=== PATIENT | male | born 1955 | race Caucasian/White ===

== ENCOUNTER → 2019-08-02 09:13 | Outpatient (CLI) | payer OTHER, BC, SELFPAY ==
--- NOTE | ~2019-08-02 | XR_ITS ---
EXAMINATION: XR chest 2V 08/02/2019 09:35 INDICATION: Cough PROCEDURE: 2 view chest COMPARISON: 02/16/2019 FINDINGS: The lungs are clear. The cardiomediastinal silhouette is within normal limits. There are no pleural effusions. There is no pneumothorax suspected. IMPRESSION: 1: NO ACUTE CARDIOPULMONARY DISEASE. Reviewed, dictated and finalized at location B. 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
== END ==
PROVIDERS: PCP Family Medicine; Visit Provider Family Medicine
DX: R05 Cough (principal)
CPT/HCPCS: 71046

== ENCOUNTER → 2019-09-09 10:19 | Outpatient (CLI) | payer OTHER, BC, SELFPAY ==
--- NOTE | ~2019-09-09 | XR_ITS ---
EXAMINATION: XR chest 2V DATE: 09/09/2019 10:43 INDICATION: Wheezing. TECHNIQUE: Frontal and lateral views of the chest were obtained. COMPARISON: Chest 2 views 08/02/2019 FINDINGS: There are peripheral airspace opacities in the upper lobes bilaterally. No pleural effusion or pneumothorax. The heart size is normal. IMPRESSION: 1. New peripheral airspace opacities in the upper lobes bilaterally, consistent with pneumonia. Reviewed, dictated and finalized at location A.
== END ==
PROVIDERS: PCP Family Medicine; Visit Provider Family Medicine
DX: R06.2 Wheezing (principal); R91.8 Other nonspecific abnormal finding of lung field
CPT/HCPCS: 71046

== ENCOUNTER 2019-09-23 10:24 | Outpatient (CLI) | payer OTHER, BC, SELFPAY ==
--- NOTE | ~2019-09-23 | XR_ITS ---
EXAMINATION: XR chest 2V DATE: 09/23/2019 10:39 INDICATION: Pneumonia, unspecified TECHNIQUE: Frontal and lateral views of the chest are obtained COMPARISON: 09/09/2019 FINDINGS: The previously described peripheral airspace opacities of the upper lobes have nearly compl etely resolved. The lungs are free of acute opacities. There is no pleural effusion or pneumothorax. The cardiomediastinal silhouette is normal. The visualized bones and soft tissues are unremarkable. IMPRESSION: 1. Near complete resolution of bilateral upper lobe airspace opacities, consistent with resolving pne umonia. Reviewed, dictated and finalized at location A. IMPRESSION: 1. Near complete resolution of bilateral upper lobe airspace opacities, consist ent with resolving pneumonia.
== END 2019-09-23 10:25 | disposition home or self-care (01) ==
PROVIDERS: PCP Family Medicine; Visit Provider Family Medicine
DX: J18.9 Pneumonia, unspecified organism (principal)
CPT/HCPCS: 71046

== ENCOUNTER 2019-10-14 11:01 | Outpatient (CLI) | payer OTHER, BC, SELFPAY ==
--- NOTE | ~2019-10-14 | XR_ITS ---
XR chest 2V DATE: 10/14/2019 11:15 INDICATION: Cough TECHNIQUE: PA and lateral views COMPARISON: 09/23/2019 PA and lateral chest FINDINGS: Normal heart size. No hilar or mediastinal enlargement. No pulmonary infiltrate or consolid ation, pleural effusion or pulmonary vascular congestion or pneumothorax. IMPRESSION: No active cardiopulmonary disease Reviewed, dictated and finalized at location A.
== END 2019-10-14 11:02 | disposition home or self-care (01) ==
LOC: ANHIMG 11:03
PROVIDERS: PCP Family Medicine; Visit Provider Family Medicine
DX: R05 Cough (principal)
CPT/HCPCS: 71046

== ENCOUNTER 2024-05-31 07:47 | Outpatient (CLI) | payer MEDICARE, OTHER, SELFPAY ==
--- NOTE | ~2024-05-31 | XR_ITS ---
Clinical Indication: Cough PA and lateral views of the chest: Comparison: 10/14/2019 Findings: The lungs are clear, without evidence of focal consolidation or pleural effusion. Cardiome diastinal silhouette is within normal limits. Bones and soft tissues are unremarkable. Impression: Normal chest. Reviewed, dictated and finalized at [facility]. 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
== END 2024-05-31 07:48 | disposition home or self-care (01) ==
LOC: MICIMG 07:48
PROVIDERS: PCP Family Medicine; Visit Provider Family Medicine
DX: R05.3 Chronic cough (principal)
CPT/HCPCS: 71046

== ENCOUNTER 2024-07-05 10:03 | Outpatient (CLI) | payer MEDICARE, OTHER, SELFPAY ==
--- NOTE | ~2024-07-05 | XR_ITS ---
EXAMINATION: XR chest 2V 07/05/2024 10:27 INDICATION: Chronic cough PROCEDURE: AP chest COMPARISON: Comparison to multiple prior studies sequentially, with oldest reviewed study dated 09/08. FINDINGS: The lungs are clear. The cardiomediastinal silhouette is within normal limits. There are no pleural effusions. There is no pneumothorax suspected. IMPRESSION: 1: NO ACUTE CARDIOPULMONARY DISEASE. Reviewed, dictated and finalized at location B. 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
== END 2024-07-05 10:04 | disposition home or self-care (01) ==
PROVIDERS: PCP Family Medicine; Visit Provider Family Medicine
DX: R05.3 Chronic cough (principal)
CPT/HCPCS: 71046

== ENCOUNTER 2024-10-12 10:45 | Outpatient (CLI) | payer MEDICARE, OTHER, SELFPAY ==
--- NOTE | ~2024-10-12 | CT_ITS ---
EXAMINATION: CT sinus wo con DATE: 10/12/2024 10:59 INDICATION: Chronic ethmoid sinusitis TECHNIQUE: Computed tomography (CT) of the paranasal sinuses was performed without intravenous contra st. The dose-length product was 287.09 mGy-cm. Automated exposure control and iterative reconstructio n technique were employed. COMPARISON: None FINDINGS: There is mild mucosal thickening of the ostiomeatal units which are patent. There is modera te mucosal thickening of the right sphenoid sinus with mucoperiosteal reaction. No significant nasal septal deviation. Mastoids are pneumatized. IMPRESSION: 1. Moderate chronic right sphenoid sinusitis. Reviewed, dictated and finalized at location A.
== END 2024-10-12 10:46 | disposition home or self-care (01) ==
LOC: MICIMG 10:47
PROVIDERS: PCP Family Medicine; Visit Provider Otolaryngology
DX: J32.2 Chronic ethmoidal sinusitis (principal); K21.9 Gastro-esophageal reflux disease without esophagitis; K22.4 Dyskinesia of esophagus
CPT/HCPCS: 70486

== ENCOUNTER 2024-11-22 01:17 | Day surgery (SDC) | payer MEDICARE, OTHER, SELFPAY ==
[2024-11-04 14:48] VITALS: BMI 26.4
[2024-11-22 10:10] VITALS: BP 118/67; PULSE 62; RESP 14; TEMP 36.6; O2SAT 99; BMI 26.1
[2024-11-22] MEDS: SIMETHICONE ORAL SUSPENSION 20 MG/0.3 ML 30 ML BOTTLE 1.8 ML PO (10:21)
--- NOTE | 2024-11-22 10:25 | P.PNAN_ITS ---
Anes - Initial Pre Proc Eval Procedure: Operation Date: 11/22/24 11:30 Proposed Procedures p Esophagogastroduodenoscopy - Brayan Jones MD Date/Time: 11/22/24 10:25 Surgeon: Brayan Jones MD Pre Op Diagnosis: Dyskinesia of esophagus, GERD Patient Data Age: 69 Gender: M Height: 1.75 m Weight: 80.3 kg Last Vital Signs Temp 36.6 C 11/22/24 10:10 Pulse 62 11/22/24 10:10 Resp 14 11/22/24 10:10 BP 118/67 11/22/24 10:10 Pulse Ox 99 11/22/24 10:10 O2 Del Method Room Air 11/22/24 10:10 Allergies Allergy/AdvReac Type Severity Reaction Status Date / Time No Known Allergies Allergy Verified 11/22/24 10:16 Home Medications ?Medication ?Instructions ?Recorded ?Confirmed ?Type alprazolam 0.5 mg tablet 0.5 mg PO BID PRN anxiety #30 tabs 10/05/23 11/11/24 Rx diclofenac sodium 75 mg See Rx Instructions .Route 02/15/24 11/22/24 Rx tablet,delayed release .COMPLEX #180 tabs febuxostat 80 mg tablet See Rx Instructions .Route 08/30/24 11/22/24 Rx .COMPLEX #90 tabs simvastatin 20 mg tablet See Rx Instructions .Route 08/30/24 11/22/24 Rx .COMPLEX #90 tabs dutasteride 0.5 mg capsule 0.5 mg PO DAILY 10/20/24 11/22/24 History Patient hx anesthesia problems: none Family hx anesthesia problems: none Results Review: All pre-operative results and documents have been reviewed as part of the pre- operative evaluation. ON LICENSE OF [facility] Past Medical History Medical History Brain injury H/O supraventricular tachycardia Surgical History Surgical History History of radiofrequency ablation (RFA) procedure for cardiac arrhythmia Family History Family History Mother Patient's mother is Carcinoma of colon Father Family history of cardiovascular disease Hypertension Social History Social History Social History: Caffeine-coffee Smoking status: Never smoker Alcohol intake: current Drinks per week: 4 Alcohol use details: beer Substance use: never Substance use type: does not use Do You Feel Safe in your Home?: Yes Lack of Transportation: No Current Housing: Decline to Answer Concerned About Future Housing: Decline to Answer Difficulty Paying Gas/Electric Bills: Decline to Answer Difficulty Paying for Meds: Decline to Answer Currently Unemployed: Decline to Answer Education: Decline to Answer Difficulty w/ Childcare or Family Care: Decline to Answer Living arrangements: with family Gender identity (if verbalized by the patient): Male Spiritual care concerns: No Anes - Eval Final PreProcedure Day of Procedure 11/22/24 10:25 Patient weight: normal Heart: regular rate and rhythm Lungs: clear to auscultation Airway: Mallampati scale class II Neurological: alert and oriented Last oral intake: >/= 8 hours ASA classification: III Emergent: no Anesthetic plan: proceed Anesthesia type and monitoring: general GIVS and standard monitoring Results Review: All pre-operative results and documents have been reviewed as part of the pre- operative evaluation. Informed Consent: The patient's anesthetic plan and its attendant risks and benefits were discussed with the patient/family/POA. Questions were solicited and answers provided to the satisfaction of the patient/family/POA.
[2024-11-22] MEDS: LACTATED RINGERS 1,000 ML 150 ML IV CONT (10:26)
--- NOTE | 2024-11-22 11:22 | PM.IMHP ---
H&P: HPI History of Present Illness Date/Time: 11/22/24 11:22 Chief Complaint: Atypical reflux Narrative: this patient has been suffering from a constant necessity to clear his throat and a sensation of phlegm for over 1 year. He has been evaluated by ENT and referred to us to rule out atypical GERD. He is scheduled for EGD. Review of Systems Review of Systems: All systems reviewed & are unremarkable except as noted in HPI and below PMFSH Past Medical History Medical History Brain injury H/O supraventricular tachycardia Surgical History Surgical History History of radiofrequency ablation (RFA) procedure for cardiac arrhythmia Family History Family History Mother Patient's mother is Carcinoma of colon Father Family history of cardiovascular disease Hypertension Social History Social History Social History: Caffeine-coffee Smoking status: Never smoker Alcohol intake: current Drinks per week: 4 Alcohol use details: beer Substance use: never Substance use type: does not use Do You Feel Safe in your Home?: Yes Lack of Transportation: No Current Housing: Decline to Answer Concerned About Future Housing: Decline to Answer Difficulty Paying Gas/Electric Bills: Decline to Answer Difficulty Paying for Meds: Decline to Answer Currently Unemployed: Decline to Answer Education: Decline to Answer Difficulty w/ Childcare or Family Care: Decline to Answer Living arrangements: with family Gender identity (if verbalized by the patient): Male Spiritual care concerns: No Meds Home Medications and Allergies Home Medications ?Medication ?Instructions ?Recorded ?Confirmed ?Type alprazolam 0.5 mg tablet 0.5 mg PO BID PRN anxiety #30 tabs 10/05/23 11/11/24 Rx diclofenac sodium 75 mg See Rx Instructions .Route 02/15/24 11/22/24 Rx tablet,delayed release .COMPLEX #180 tabs febuxostat 80 mg tablet See Rx Instructions .Route 08/30/24 11/22/24 Rx .COMPLEX #90 tabs simvastatin 20 mg tablet See Rx Instructions .Route 08/30/24 11/22/24 Rx .COMPLEX #90 tabs dutasteride 0.5 mg capsule 0.5 mg PO DAILY 10/20/24 11/22/24 History Allergies Allergy/AdvReac Type Severity Reaction Status Date / Time No Known Allergies Allergy Verified 11/22/24 10:16 Vital Signs Vital Signs - 24 hr 11/22/24 10:10 Temperature 97.9 F Pulse Rate 62 Respiratory Rate 14 Blood Pressure 118/67 Pulse Oximetry 99 Oxygen Delivery Room Air Exam Const: General: cooperative and healthy appearing Resp: Effort & Inspection: normal respiratory effort and able to speak in complete sentences Auscultation: clear to auscultation bilaterally Cardio: Rate: regular rate Rhythm: regular rhythm GI: Inspection: normal to inspection GI Palp: No No hepatosplenomegaly present Auscultation: normal bowel sounds Rectal Exam: deferred Skin: General skin exam: normal color Psych: Appearance: grossly normal Mental Status: mental status grossly normal Assessment and Plan Assessment and plan (1) Laryngopharyngeal reflux: Code(s): K21.9 - Gastro-esophageal reflux disease without esophagitis Status: Acute Assessment and Plan: There is a strong suspicion for LPR. An EGD will be performed. He will probably need esophageal manometry and pH study with impedance.
[2024-11-22 11:34] VITALS: BP 123/66; PULSE 52; RESP 14; O2SAT 100
[2024-11-22 11:44] VITALS: BP 116/74; PULSE 53; RESP 16; O2SAT 96
[2024-11-22 11:54] VITALS: BP 107/78; PULSE 54; RESP 21; O2SAT 97
== END 2024-11-22 12:00 | disposition home or self-care (01) ==
PROVIDERS: PCP Family Medicine; Referring Provider Otolaryngology; Visit Provider Internal Medicine Gastroenterology
PROC: 0DJ08ZZ Inspection of Upper Intestinal Tract, Via Natural or Artificial Opening Endoscopic (ICD-10-PCS; CPT 43235; principal; 2024-11-22 11:30)
DX: K21.9 Gastro-esophageal reflux disease without esophagitis (principal); I47.10 Supraventricular tachycardia, unspecified; Z86.79 Personal history of other diseases of the circulatory system; Z80.0 Family history of malignant neoplasm of digestive organs; Z82.49 Family history of ischemic heart disease and other diseases of the circulatory system
CPT/HCPCS: 43235; J2003; J2704; J7120